=== PATIENT | female | born 2000 | race Two or more races ===

== ENCOUNTER 2023-04-03 22:53 | Emergency (ER) | payer SELFPAY ==
[2023-04-03 23:52] LABS: BARBITURATE SCREEN,URINE NEGATIVE (CUTOFF=200); BENZODIAZEPINES SCREEN,URINE NEGATIVE (CUTOFF=150); BUPRENORPHINE SCREEN,URINE NEGATIVE (CUTOFF=10); METHADONE SCREEN, URINE NEGATIVE (CUTOFF=200); METHAMPHETAMINES SCREEN, URINE NEGATIVE (CUTOFF=500); OXYCODONE SCREEN,URINE NEGATIVE (CUT0FF=100); PROPOXYPHENE SCREEN,URINE NEGATIVE (CUTOFF=300); THC SCREEN,URINE 20 NG/ML NEGATIVE (CUTOFF=50)
[2023-04-03 23:57] LABS: AMPHETAMINES SCREEN, URINE PRESUMPTIVE POSITIVE (CUTOFF=500)
== END 2023-04-03 23:53 | disposition home or self-care (01) ==
LOC: JD.ED 22:53
DX: F41.8 Other specified anxiety disorders (principal)
CPT/HCPCS: 80306; 81025; 99282; 99284

== ENCOUNTER 2024-02-24 02:03 | Emergency (ER) | payer SELFPAY ==
[2024-02-24] MEDS: ceFAZolin 2 GM in Sodium Chloride 0.9% 50 ML IV ONE (02:51)
[2024-02-24 02:52] LABS: BASOPHILS ABSOLUTE AUTO 0.1 K/mm3 (0.0-0.2); BASOPHILS PERCENT AUTO 0.5 % (0.0-1.0); EOSINOPHILS PERCENT AUTO 0.2 % (0.0-6.0); HEMATOCRIT 40.4 % (37.0-47.0); HEMOGLOBIN 13.3 gm/dl (12.0-16.0); IMMATURE GRAN ABSOLUTE AUTO 0.03 K/mm3 (0.00-0.05); IMMATURE GRAN PERCENT AUTO 0.3 % (0.0-0.4); LYMPHOCYTES ABSOLUTE AUTO 5.8 K/mm3 (1.0-4.8); LYMPHOCYTES PERCENT AUTO 61.1 % (24.0-44.0); MEAN CORPUSCULAR HEMOGLOBIN 27.1 pg (28.0-32.0); MEAN CORPUSCULAR HGB CONC 32.9 g/dl (32.0-36.0); MEAN CORPUSCULAR VOLUME 82.3 fl (83.0-99.0); MEAN PLATELET VOLUME 11.1 fl (9.4-12.3); MONOCYTES ABSOLUTE AUTO 0.8 K/mm3 (0.0-0.8); MONOCYTES PERCENT AUTO 8.2 % (0.0-8.0); NEUTROPHILS ABSOLUTE AUTO 2.8 K/mm3 (1.8-7.7); NEUTROPHILS PERCENT AUTO 29.7 % (41.0-71.0); PLATELET COUNT,PLT 186 K/mm3 (150-400); RED BLOOD CELL COUNT 4.91 M/mm3 (4.10-5.30); WHITE BLOOD CELL COUNT,WBC 9.49 K/mm3 (3.9-11.3)
[2024-02-24] MEDS: Sodium Chloride 0.9% 10 ML Syringe FLUSH PRN (02:52)
[2024-02-24 03:16] LABS: A/G RATIO 1.1 (1-2); ANION GAP 12.6 (5-15); BILIRUBIN TOTAL 0.6 mg/dL (0.2-1.0); CREATININE 0.8 mg/dL (0.55-1.02); EST CRCL DRUG DOSING (CG) 82.88 mL/min; POTASSIUM,K 2.6 mEq/L (3.5-5.1); PROTEIN TOTAL,TP 7.7 g/dl (6.4-8.2)
[2024-02-24] MEDS: Potassium Chloride 20 MEQ Tab.ER PO ONE (07:21)
[2024-02-24] MEDS: Silver Sulfadiazine 1% Crm 400 GM Jar TOP ONE (07:21)
== END 2024-02-24 07:29 | disposition home or self-care (01) ==
LOC: JD.ED 02:03
DX: L03.012 Cellulitis of left finger (principal)
CPT/HCPCS: 36415; 73120; 80053; 84703; 85025; 96365; 99283; J0690; J3490; 99284; A9270-GY

== ENCOUNTER 2024-04-16 20:45 | Emergency (ER) | payer SELFPAY | END 2024-04-16 21:47 | LOC: JD.ED 20:45 | DX: S99.922A Unspecified injury of left foot, initial encounter (principal); F17.210 Nicotine dependence, cigarettes, uncomplicated; Z86.16 Personal history of COVID-19; X50.1XXA Overexertion from prolonged static or awkward postures, initial encounter | CPT/HCPCS: 99282; 99283 ==